=== PATIENT | male | born 1970 | race Caucasian/White ===

== ENCOUNTER 2019-11-22 | Emergency (ER) | payer MEDICARE ==
[~2019-11-22] MED LIST: CLEOCIN300 MG OR; NO MEDS; PERCOCET 5/325M1 TAB OR; PROTONIX40 MG PO
[2019-11-22 18:26] LABS: HEMATOCRIT 38.1 % (39.0-50.0); IMMATURE GRANULOCYTES 1.1 % (0.0-5.0); MEAN CELL VOLUME 87.6 fL CALC (80.0-100.0); MEAN CORPUSCULAR HGB 29.4 pG CALC (26.0-32.0); MEAN CORPUSCULAR HGB CONC 33.6 g/L CALC (32.0-36.0); NEUT# 10.63 thou/uL (1.82-7.42); RED BLOOD COUNT 4.35 mill/uL (4.70-6.10); RED CELL DISTRI WIDTH 13.2 % (11.5-15.5)
[2019-11-22 18:29] LABS: HEMOGLOBIN 12.8 g/dl (14.0-18.0)
[2019-11-22 18:44] LABS: ALBUMIN 3.6 g/dL (3.2-5.0); ALKALINE PHOSPHATASE 89 u/l (38-126); ANION GAP 13 (6-22 (CALC)); BILIRUBIN, TOTAL 0.5 mg/dL (0.0-1.4); BUN 15 mg/dL (9-20); BUN/CREATININE RATIO 18 (12-20 (CALC)); CARBON DIOXIDE 24 mmol/l (22-30); CHLORIDE 99 mmol/l (95-108); CREATININE 0.9 mg/dL (0.7-1.3); GFR > 60 ML/MIN (>=60 (CALC)); GFR FOR AFR.AMER. > 60 ML/MIN (>=60 (CALC)); LIPASE 21 u/l (23-300); SGOT/AST 34 u/l (17-59); SODIUM 133 mmol/l (137-146); TOTAL PROTEIN 7.4 g/dL (6.3-8.2)
[2019-11-22 18:47] LABS: POTASSIUM 3.4 mmol/l (3.5-5.1)
[2019-11-22] MEDS ORDERED: DOXY-CAPS100 MG PO (18:55)
== END 2019-11-22 19:27 | disposition home or self-care (01) ==
PROVIDERS: Family Medicine
DX: J18.9 Pneumonia, unspecified organism (principal); F17.210 Nicotine dependence, cigarettes, uncomplicated; Z88.0 Allergy status to penicillin

== ENCOUNTER 2020-02-18 | Emergency (ER) | payer MEDICARE ==
[~2020-02-18] MED LIST changes: +DOXY-CAPS100 MG PO
== END 2020-02-18 16:08 | disposition home or self-care (01) ==
PROC: 0HQMXZZ Repair Right Foot Skin, External Approach (ICD-10-PCS; principal; 2020-02-18)
DX: S91.011A Laceration without foreign body, right ankle, initial encounter (principal); F17.200 Nicotine dependence, unspecified, uncomplicated; W20.8XXA Other cause of strike by thrown, projected or falling object, initial encounter; Y93.89 Activity, other specified; Y92.009 Unspecified place in unspecified non-institutional (private) residence as the place of occurrence of the external cause

== ENCOUNTER 2020-02-28 | Emergency (ER) | payer MEDICARE | END 2020-02-28 11:59 | disposition home or self-care (01) | DX: S91.011D Laceration without foreign body, right ankle, subsequent encounter (principal); X58.XXXD Exposure to other specified factors, subsequent encounter; F17.210 Nicotine dependence, cigarettes, uncomplicated ==

== ENCOUNTER 2020-09-08 15:55 | Emergency (ER) | payer MEDICARE ==
[~2020-09-08] VITALS: Ht 182.9 cm; Wt 83.6 kg
[2020-09-08] MEDS ORDERED: BACTRIM DS1 TAB PO (16:34)
[2020-09-08] MEDS ORDERED: CEPHALEXIN500 M1 PO (16:34)
[2020-09-08 16:54] VITALS: BP 132/64
== END 2020-09-08 16:54 | disposition home or self-care (01) ==
LOC: ED 15:55
PROC: 0H9FXZZ Drainage of Right Hand Skin, External Approach (ICD-10-PCS; principal; 2020-09-08)
DX: L02.511 Cutaneous abscess of right hand (principal); B95.62 Methicillin resistant Staphylococcus aureus infection as the cause of diseases classified elsewhere; F17.200 Nicotine dependence, unspecified, uncomplicated

== ENCOUNTER 2020-09-10 13:59 | Emergency (ER) | payer MEDICARE ==
[~2020-09-10] VITALS: Ht 182.9 cm; Wt 75.0 kg
[~2020-09-10 13:59] MED LIST changes: +BACTRIM DS1 TAB PO; +CEPHALEXIN500 M1 PO
[2020-09-10 14:47] VITALS: BP 141/89
== END 2020-09-10 14:47 | disposition home or self-care (01) ==
LOC: ED 13:59
DX: Z48.01 Encounter for change or removal of surgical wound dressing (principal); F17.200 Nicotine dependence, unspecified, uncomplicated

== ENCOUNTER 2020-09-12 14:01 | Emergency (ER) | payer MEDICARE ==
[~2020-09-12] VITALS: Ht 182.9 cm; Wt 70.0 kg
[2020-09-12 14:51] VITALS: BP 122/74
== END 2020-09-12 15:05 | disposition home or self-care (01) ==
LOC: ED 14:01
DX: Z48.01 Encounter for change or removal of surgical wound dressing (principal)

== ENCOUNTER 2022-07-24 13:37 | Emergency (ER) | payer MEDICARE ==
[~2022-07-24] VITALS: Ht 182.9 cm; Wt 77.2 kg
[2022-07-24 14:45] VITALS: BP 152/99
[2022-07-24 15:00] VITALS: BP 153/103
[2022-07-24 15:16] VITALS: BP 116/82
[2022-07-24] MEDS ORDERED: VIBRAMYCIN100 M2 PO (15:21)
[2022-07-24 15:31] VITALS: BP 116/82
== END 2022-07-24 15:31 | disposition home or self-care (01) ==
LOC: ED 13:37
DX: L02.415 Cutaneous abscess of right lower limb (principal); F17.210 Nicotine dependence, cigarettes, uncomplicated; Z86.14 Personal history of Methicillin resistant Staphylococcus aureus infection

== ENCOUNTER 2022-10-09 20:47 | Observation (INO) | payer MEDICARE ==
[~2022-10-09] VITALS: Ht 182.9 cm; Wt 80.0 kg
[~2022-10-09 20:47] MED LIST changes: +VIBRAMYCIN100 M2 PO
--- NOTE | 2022-10-09 20:50 | NUR ---
TO ROOM 8 FOR TRIAGE.
[2022-10-09] MEDS ORDERED: DOXYCYCLINE100 MG PO (21:47)
[2022-10-09 22:17] LABS: HEMATOCRIT 38.9 % (39.0-50.0); HEMOGLOBIN 12.7 g/dl (14.0-18.0); IMMATURE GRANULOCYTES 0.1 % (0.0-5.0); MEAN CELL VOLUME 89.8 fL CALC (80.0-100.0); MEAN CORPUSCULAR HGB 29.3 pG CALC (26.0-32.0); MEAN CORPUSCULAR HGB CONC 32.6 g/dL CAL (32.0-36.0); NEUT# 6.33 thou/uL (1.82-7.42); RED BLOOD COUNT 4.33 mill/uL (4.70-6.10); RED CELL DISTRI WIDTH 14.4 % (11.5-15.5)
[2022-10-09 22:35] LABS: ALBUMIN 3.2 g/dL (3.2-5.0); BILIRUBIN, TOTAL 0.1 mg/dL (0.0-1.4); CREATININE 1.8 mg/dL (0.7-1.3); TOTAL PROTEIN 7.2 g/dL (6.3-8.2)
--- NOTE | 2022-10-09 22:40 | NUR ---
DR TO BEDSIDE TO EVALUATE WOUND...DECIDED TO ADMIT. PT LEFT TO DISCUSS WITH ABOUT ADMISSION. STATES WILL RETURN.
--- NOTE | 2022-10-09 23:10 | NUR ---
PT RETURNED TO ROOM.
[2022-10-10] VITALS (12 sets, daily range): BP systolic 115–183; BP diastolic 79–127
--- NOTE | 2022-10-10 02:00 | NUR ---
TO FLOOR VIA W/C WITH LACEY MILLIGAN
--- NOTE | 2022-10-10 02:02 | NUR ---
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 ORIENTATED PT TO ROOM AND CALL [employer] SYSTEM. FLUIDS/SNACK OFFERED. ASMISSION ASSESSMENT COMPLETED. IV PATENT. PT STATES NO PAIN AT THIS TIME. FALL/SAFTEY PRECAUTION IN PLACE, CALL LIGHT WITHIN REACH.
--- NOTE | 2022-10-10 04:01 | NUR ---
PT RESTING IN BED WITH EYES CLOSED. BREATHING EVENA ND UNLABORED. NO DISTRESS NOTED. FALL/SAFTEY PRECAUTION IN PLACE, CALL LIGHT WITHIN REACH.
--- NOTE | 2022-10-10 08:00 | NUR ---
PT IS SLEEPING BUT EASILY AROUSABLE. PT HAS NO C/O PAIN BUT WILL COMPLAIN TO TOUCH OR LLE. PT IS A&OX3 IS ABLE TO FOLLOW COMMANDS, HAS MINIMAL WEAKNESS TO LLE. PT HAS CALL LIGHT NEAR AND WILL MAKE HIS NEEDS KNOWN, WILL CONTINUE TO MONITOR, VSS.
--- NOTE | 2022-10-10 11:28 | NUR ---
S: MAXIMO ZHU is a 52 M who presents with cellulitis. He has a history of steel plates in neck and right knee. All medications in patient's chart were reviewed. O: VS: BP 115/79 mmHg, P 79 bpm, RR 18 bpm,T 98.1 F W 80 kg, HT 72 in, Scr= 1.8,CrCl= 54 ml/min A: Blood culture is pending. Nasal culture for MRSA is pending. P: Vancomycin ordered for pharmacy to dose. Start Vancomycin 1000 mg IV Q12H. Vancomycin trough is drawn before the 4th dose on 10/11/22 @ 11:30. Vancomycin goal trough is between <10-15 mcg/ml>. Pharmacy will follow and or advise on antibiotics use as needed.
--- NOTE | 2022-10-10 12:00 | NUR ---
PT IS SITTING UP IN BED, ON THE PHONE, PT HAS NO CHANGE TO ASSESSMENT, PT HAS CALL LIGHT NEAR.
[2022-10-10 12:54] LABS: ANION GAP 5 (6-22 (CALC)); BUN 15 mg/dL (9-20); BUN/CREATININE RATIO 11 (12-20 (CALC)); CARBON DIOXIDE 28 mmol/l (22-30); CHLORIDE 111 mmol/l (95-108); CREATININE 1.3 mg/dL (0.7-1.3); GFR FOR AFR.AMER. > 60 ML/MIN (>=60 (CALC)); GFR OTHER RACES 58 ML/MIN (>=60 (CALC)); POTASSIUM 4.1 mmol/l (3.5-5.1); SODIUM 140 mmol/l (137-146)
--- NOTE | 2022-10-10 17:00 | NUR ---
PT HAS BEEN TRANSPORTED TO CT, PT AMBULATES WELL, NO ASSISTANCE IS NEEDED IN SHORT DISTANCES. PT STATES HE ONLY HAS PAIN WHEN STANDING. PT HAS BEEN TRANSPORTED BACK TO ROOM, PT HAS CALL LIGHT NEAR AND DINNER TRAY.
--- NOTE | 2022-10-10 19:45 | NUR ---
PT RESTING IN BED WATCHING TV, NO SIGNS OF DISTRESS NOTED, RESP EVEN AND UNLABORED. PT ALERT AND ORIENTED X4. NOTED EDEMA, REDNESS, AND WARM TO TOUCH TO LLE. PT DENIES ANY PAIN AT THIS TIME. CAPILLARY REFILL BRISK AND PEDAL PULSES EQUAL BILAT. ASSESSMENT COMPLETED, CALL LIGHT IN REACH,CONTINUE TO MONITOR.
[2022-10-10 22:17] LABS: URINE BILIRUBIN - DIPSTICK NEGATIVE (NEGATIVE); URINE BLOOD DIPSTICK MODERATE (NEGATIVE); URINE CLARITY CLEAR; URINE COLOR YELLOW; URINE GLUCOSE - DIPSTICK NEGATIVE (NEGATIVE); URINE KETONE NEGATIVE (NEGATIVE); URINE LEUK ESTERASE NEGATIVE (Negative); URINE NITRITE - DIPSTICK NEGATIVE (Negative); URINE PH 6.5 (4.5-8.0); URINE PROTEIN - DIPSTICK 100 mg/dL (NEG-TRACE); URINE SPECIFIC GRAVITY 1.015; URINE UROBILINOGEN - DIPSTICK 0.2 E.U./dL (0.2)
[2022-10-10 22:25] LABS: URINE SQUAMOUS EPITHELIAL CELL FEW EPI/hpf (0-FEW); URINE WBC 0-2 WBC/hpf (0-5)
--- NOTE | 2022-10-11 | NUR ---
IV ANTIBIOTIC HUNG, PT VOICES NO NEEDS OR COMPLAINTS AT THIS TIME. CALL LIGHT IN REACH,CONTINUE TO MONITOR.
[2022-10-11 04:04] VITALS: BP 143/93
--- NOTE | 2022-10-11 04:08 | NUR ---
PT RESTING IN BED, NO SIGNS OF DISTRESS NOTED, RESP EVEN AND UNLABORED. VITALS OBTAINED, PT VOICES NO NEEDS OR COMPLAINTS AT THIS TIME, CALL LIGHT IN REACH, CONTINUE TO MONITOR.
[2022-10-11 05:41] LABS: HEMATOCRIT 37.4 % (39.0-50.0); HEMOGLOBIN 12.2 g/dl (14.0-18.0); MEAN CELL VOLUME 91.7 fL CALC (80.0-100.0); MEAN CORPUSCULAR HGB 29.9 pG CALC (26.0-32.0); MEAN CORPUSCULAR HGB CONC 32.6 g/dL CAL (32.0-36.0); RED BLOOD COUNT 4.08 mill/uL (4.70-6.10); RED CELL DISTRI WIDTH 14.2 % (11.5-15.5)
[2022-10-11 05:51] LABS: BUN 16 mg/dL (9-20); BUN/CREATININE RATIO 11 (12-20 (CALC)); CARBON DIOXIDE 27 mmol/l (22-30); CHLORIDE 110 mmol/l (95-108); CREATININE 1.4 mg/dL (0.7-1.3); GFR FOR AFR.AMER. > 60 ML/MIN (>=60 (CALC)); GFR OTHER RACES 53 ML/MIN (>=60 (CALC)); MAGNESIUM 1.8 mg/dL (1.6-2.3); POTASSIUM 4.5 mmol/l (3.5-5.1)
[2022-10-11 06:03] LABS: ANION GAP 6 (6-22 (CALC)); SODIUM 138 mmol/l (137-146)
--- NOTE | 2022-10-11 07:00 | NUR ---
PT IS AWAKE AND ON HIS PHONE WITH TV ON, PT STATES HE DIDN'T SLEEP MUCH LAST NIGHT. PT IS A&OX3. PT FOLLOWS COMMANDS AND IS ABLE TO MAKE HIS NEEDS KNOWN. PT HAS CALL LIGHT NEAR AND WILL CALL IF IN NEED. PT VS ASSESSED. AND WILL CONTINU TO MONITOR.
[2022-10-11 07:09] VITALS: BP 138/93; BP 141/91
--- NOTE | 2022-10-11 12:00 | NUR ---
PT HAS NO CHANGE TO ASSESSMENT PT HAS BEEN ASSISTED TO SHOWER BY ALL SOURCE INTELLIGENCE ANALYST, PT IS ABLE TO PIVOT TO SHOWER. PT HAS NO C/O PAIN, PT HAS CALL LIGHT NEAR AND WILL CONTINUE TO MONITOR.
[2022-10-11 14:42] VITALS: BP 149/93
--- NOTE | 2022-10-11 14:53 | NUR ---
CONTINUE CURRENT VANCO DOSE OF 1 GRAM Q12H. TROUGH=11 NEXT TROUGH WILL BE 10/13/22 @1130
--- NOTE | 2022-10-11 16:25 | NUR ---
pt is sitting up in bed and has no change to assessment. pt has ivf infusing, pt has no c/o and pt has call light near.
[2022-10-11 18:49] VITALS: BP 151/79
--- NOTE | 2022-10-11 20:50 | NUR ---
PT RESTING IN BED, NO SIGNS OF DISTRESS NOTED, RESP EVEN AND UNLABORED. PT ALERT AND ORIENTED X3, DISCUSSED POC. PT DENIES ANY PAIN OR DISCOMFORT TO LLE, ELEVATED ON PILLOWS. IVF INFUSING, ASSESSMENT COMPLETED, VOICES NO NEEDS OR COMPLAINTS AT THIS TIME. CALL LIGHT IN REACH,CONTINUE TO MONITOR.
--- NOTE | 2022-10-11 22:16 | NUR ---
IV ANTIBIOTIC HUNG, PT DENIES ANY NEEDS OR COMPLAINTS AT THIS TIME. CALL LIGHT IN REACH,CONTINUE TO MONITOR.
--- NOTE | 2022-10-12 | NUR ---
PT RESTING IN BED, IV ANTIBIOTIC INITIATED. PT DENIES ANY NEEDS OR COMPLAINTS AT THIS TIME. CALL LIGHT IN REACH,CONTINUE TO MONITOR.
[2022-10-12 03:39] VITALS: BP 163/88
--- NOTE | 2022-10-12 04:00 | NUR ---
PT RESTING IN BED, NO SIGNS OF DISTRESS NOTED, RESP EVEN AND UNLABORED. CALL LIGHT IN REACH,CONTINUE TO MONITOR.
[2022-10-12 06:54] VITALS: BP 131/79
[2022-10-12] MEDS ORDERED: DOXYCYCLINE100 MG PO (10:56)
--- NOTE | 2022-10-12 11:56 | NUR ---
PT HAS BEEN ASSISTED TO SHOWER, AND AMBULATED BACK TO BED. PT IS NOW SPEAKING WITH DR. PT HAS NO CHANGE TO ASSESSMENT. PT HAS CALL LIGHT NEAR.
== END 2022-10-12 15:00 | disposition home or self-care (01) ==
LOC: ED 20:47 → ED-I 23:40 → ED 10-10 00:06 → MS2 10-10 00:07
PROVIDERS: Emergency Medicine; Surgery; ADMIT Internal Medicine; ATTEND Internal Medicine
DX: L03.116 Cellulitis of left lower limb (principal); F17.200 Nicotine dependence, unspecified, uncomplicated; Z88.0 Allergy status to penicillin
CPT/HCPCS: J1650; J1956; Q9967; S0073

== ENCOUNTER 2023-02-21 19:57 | Emergency (ER) | payer MEDICARE ==
[~2023-02-21] VITALS: Ht 182.9 cm; Wt 82.0 kg
[~2023-02-21 19:57] MED LIST changes: +DOXYCYCLINE100 MG PO
[2023-02-21 20:53] LABS: BASO% 0.3 % (0-3); EOS% 3.1 % (0-8); LYMPH% 27.5 % (15-41); MEAN CELL VOLUME 88.6 fL CALC (80.0-100.0); MEAN CORPUSCULAR HGB 28.5 pG CALC (26.0-32.0); MEAN CORPUSCULAR HGB CONC 32.2 g/dL CAL (32.0-36.0); MONO% 10.8 % (2-13); NEUT# 4.99 thou/uL (1.82-7.42); NEUT% 57.3 % (42-76); RED BLOOD COUNT 5.43 mill/uL (4.70-6.10); RED CELL DISTRI WIDTH 14.7 % (11.5-15.5)
[2023-02-21 20:56] LABS: HEMATOCRIT 48.1 % (39.0-50.0); HEMOGLOBIN 15.5 g/dl (14.0-18.0)
[2023-02-21 20:57] LABS: ALBUMIN 3.1 g/dL (3.2-5.0); ALKALINE PHOSPHATASE 91 u/l (38-126); ANION GAP 10 (6-22 (CALC)); BUN 26 mg/dL (9-20); BUN/CREATININE RATIO 12 (12-20 (CALC)); CARBON DIOXIDE 25 mmol/l (22-30); CHLORIDE 110 mmol/l (95-108); CPK 112 u/l (55-170); CREATININE 2.1 mg/dL (0.7-1.3); ETHYL ALCOHOL 0 mg/dl (0-30); GFR FOR AFR.AMER. 40 ML/MIN (>=60 (CALC)); GFR OTHER RACES 33 ML/MIN (>=60 (CALC)); POTASSIUM 4.7 mmol/l (3.5-5.1); SGOT/AST 37 u/l (17-59); SODIUM 140 mmol/l (137-146); TOTAL PROTEIN 7.2 g/dL (6.3-8.2)
[2023-02-21 21:03] LABS: BILIRUBIN, TOTAL 0.2 mg/dL (0.2-1.3)
[2023-02-21] MEDS ORDERED: TYLENOL # 31 TA1 PO (22:23)
[2023-02-21] MEDS ORDERED: VOLTAREN75 MG PO (22:23)
[2023-02-21] MEDS ORDERED: VIBRAMYCIN100 M2 PO (22:23)
[2023-02-21 23:09] VITALS: BP 110/77
== END 2023-02-21 23:33 | disposition home or self-care (01) ==
LOC: ED 19:57
PROVIDERS: Family Medicine
PROC: 0HQ1XZZ Repair Face Skin, External Approach (ICD-10-PCS; principal; 2023-02-21)
PROC: 0HQLXZZ Repair Left Lower Leg Skin, External Approach (ICD-10-PCS; 2023-02-21)
DX: S02.69XA Fracture of mandible of other specified site, initial encounter for closed fracture (principal); S02.40CA Maxillary fracture, right side, initial encounter for closed fracture; S02.40FA Zygomatic fracture, left side, initial encounter for closed fracture; S02.842A Fracture of lateral orbital wall, left side, initial encounter for closed fracture; S81.012A Laceration without foreign body, left knee, initial encounter; S01.511A Laceration without foreign body of lip, initial encounter; S01.81XA Laceration without foreign body of other part of head, initial encounter; S01.412A Laceration without foreign body of left cheek and temporomandibular area, initial encounter; S16.1XXA Strain of muscle, fascia and tendon at neck level, initial encounter; F17.200 Nicotine dependence, unspecified, uncomplicated; V86.56XA Driver of dirt bike or motor/cross bike injured in nontraffic accident, initial encounter; Y93.I9 Activity, other involving external motion; Y92.821 Forest as the place of occurrence of the external cause

== ENCOUNTER 2023-03-05 11:26 | Emergency (ER) | payer MEDICARE ==
[~2023-03-05] VITALS: Ht 182.9 cm; Wt 81.6 kg
[~2023-03-05 11:26] MED LIST changes: +TYLENOL # 31 TA1 PO; +VOLTAREN75 MG PO
[2023-03-05 11:33] VITALS: BP 134/95
[2023-03-05 11:45] VITALS: BP 133/93
[2023-03-05 11:59] VITALS: BP 113/84
[2023-03-05 12:00] VITALS: BP 113/84
== END 2023-03-05 12:00 | disposition home or self-care (01) ==
LOC: ED 11:26
DX: S81.012D Laceration without foreign body, left knee, subsequent encounter (principal); S01.412D Laceration without foreign body of left cheek and temporomandibular area, subsequent encounter; S02.92XD Unspecified fracture of facial bones, subsequent encounter for fracture with routine healing; F17.200 Nicotine dependence, unspecified, uncomplicated; V86.56XD Driver of dirt bike or motor/cross bike injured in nontraffic accident, subsequent encounter

== ENCOUNTER 2024-05-18 23:36 | Emergency (ER) | payer MEDICARE ==
[~2024-05-18] VITALS: Ht 182.9 cm; Wt 81.3 kg
[2024-05-19] MEDS ORDERED: KETOROLAC TROMETHAMINE 30 MG/ML SDV IM ONE (00:10)
[2024-05-19] MEDS ORDERED: HYDROcodone 5 MG/Acetaminophen 325 MG/COMBO PO ONE (00:10)
[2024-05-19 01:25] VITALS: BP 128/86
[2024-05-19] MEDS ORDERED: RENVELA800 MG PO (02:07)
== END 2024-05-19 01:25 | disposition home or self-care (01) ==
LOC: ED 23:36
DX: K40.90 Unilateral inguinal hernia, without obstruction or gangrene, not specified as recurrent (principal); N18.6 End stage renal disease; F17.200 Nicotine dependence, unspecified, uncomplicated; Z99.2 Dependence on renal dialysis

== ENCOUNTER 2024-08-17 02:11 | Emergency (ER) | payer MEDICARE ==
[~2024-08-17] VITALS: Ht 182.9 cm; Wt 80.0 kg
[~2024-08-17 02:11] MED LIST changes: +RENVELA800 MG PO
[2024-08-17] MEDS ORDERED: HYDROmorphone HCL 2 MG/AMP IV ONE (02:40)
[2024-08-17] MEDS ORDERED: ONDANSETRON HCl 4 MG/2 ML SDV IV ONE (02:40)
[2024-08-17 02:50] LABS: BASO% 0.5 % (0-3); EOS% 4.2 % (0-8); HEMATOCRIT 32.8 % (39.0-50.0); HEMOGLOBIN 10.7 g/dl (14.0-18.0); IMMATURE GRANULOCYTES 0.6 % (0.0-5.0); LYMPH% 8.2 % (15-41); MEAN CORPUSCULAR HGB 30.5 pG CALC (26.0-32.0); MEAN CORPUSCULAR HGB CONC 32.6 g/dL CAL (32.0-36.0); MONO% 9.6 % (2-13); NEUT# 7.82 thou/uL (1.82-7.42); NEUT% 76.9 % (42-76); RED BLOOD COUNT 3.51 mill/uL (4.70-6.10); RED CELL DISTRI WIDTH 15.1 % (11.5-15.5)
[2024-08-17 02:51] LABS: MEAN CELL VOLUME 93.4 fL CALC (80.0-100.0)
[2024-08-17 03:02] LABS: ALBUMIN 3.4 g/dL (3.2-5.0); TOTAL PROTEIN 6.9 g/dL (6.3-8.2)
[2024-08-17 03:17] LABS: BILIRUBIN, TOTAL 0.9 mg/dL (0.2-1.3); CREATININE 8.8 mg/dL (0.7-1.3); POTASSIUM 3.9 mmol/l (3.5-5.1)
[2024-08-17 04:15] VITALS: BP 122/76
[2024-08-17 04:30] VITALS: BP 129/81
[2024-08-17 04:45] VITALS: BP 124/76
[2024-08-17] MEDS ORDERED: SODIUM CHLORIDE 0.9% 1,000 ML IV ONE (04:50)
[2024-08-17] MEDS ORDERED: Levofloxacin 500 mg Premix 100 ML IV ONE (04:50)
[2024-08-17 05:00] VITALS: BP 128/79
[2024-08-17 05:28] VITALS: BP 128/79
== END 2024-08-17 05:28 | disposition short-term general hospital (02) ==
LOC: ED 02:11
PROVIDERS: Emergency Medicine
DX: K65.9 Peritonitis, unspecified (principal); I31.39 Other pericardial effusion (noninflammatory); R74.01 Elevation of levels of liver transaminase levels; R79.89 Other specified abnormal findings of blood chemistry; N18.6 End stage renal disease; Z99.2 Dependence on renal dialysis; F17.200 Nicotine dependence, unspecified, uncomplicated
CPT/HCPCS: J1956

== ENCOUNTER 2024-10-11 05:11 | Emergency (ER) | payer MEDICARE ==
[~2024-10-11] VITALS: Ht 182.9 cm; Wt 78.0 kg
[2024-10-11] VITALS (11 sets, daily range): BP systolic 136–160; BP diastolic 86–103
[~2024-10-11 05:11] MED LIST changes: +FAMOTIDINE20 M1 PO; +LISINOPRIL PO; +OMEPRAZOLE20 MG PO; +RENAGEL800 MG PO
[2024-10-11] MEDS ORDERED: MORPHINE SULFATE 4 MG/ML VIAL IV STA (05:36)
[2024-10-11] MEDS ORDERED: KETOROLAC TROMETHAMINE 30 MG/ML SDV IV ONE (05:40)
[2024-10-11] MEDS ORDERED: DIATRIZOATE MEGLUMINE & SODIUM 30 ML/BTL PO ONE (05:40)
[2024-10-11] MEDS ORDERED: PROMETHAZINE HCL 25 MG/ML AMP IV ONE (05:40)
[2024-10-11 06:07] LABS: BASO% 0.7 % (0-3); EOS% 5.5 % (0-8); HEMATOCRIT 35.9 % (39.0-50.0); HEMOGLOBIN 11.8 g/dl (14.0-18.0); LYMPH% 22.2 % (15-41); MEAN CELL VOLUME 91.1 fL CALC (80.0-100.0); MEAN CORPUSCULAR HGB 29.9 pG CALC (26.0-32.0); MEAN CORPUSCULAR HGB CONC 32.9 g/dL CAL (32.0-36.0); MONO% 12.5 % (2-13); NEUT# 3.21 thou/uL (1.82-7.42); NEUT% 59.1 % (42-76); RED BLOOD COUNT 3.94 mill/uL (4.70-6.10); RED CELL DISTRI WIDTH 17.4 % (11.5-15.5)
[2024-10-11 06:16] LABS: BILIRUBIN, TOTAL 0.9 mg/dL (0.2-1.3); POTASSIUM 4.4 mmol/l (3.5-5.1)
[2024-10-11 06:22] LABS: TOTAL PROTEIN 8.5 g/dL (6.3-8.2)
[2024-10-11 06:23] LABS: CREATININE 7.7 mg/dL (0.7-1.3)
[2024-10-11] MEDS ORDERED: Levofloxacin 500 mg Premix 100 ML IV ONE (09:35)
== END 2024-10-11 10:14 | disposition short-term general hospital (02) ==
LOC: ED 05:11
PROVIDERS: Family Medicine
DX: J18.9 Pneumonia, unspecified organism (principal); I31.39 Other pericardial effusion (noninflammatory); J90 Pleural effusion, not elsewhere classified; N18.6 End stage renal disease; Z99.2 Dependence on renal dialysis; E85.9 Amyloidosis, unspecified; F17.200 Nicotine dependence, unspecified, uncomplicated
CPT/HCPCS: J1956

== ENCOUNTER 2024-11-15 19:07 | Emergency (ER) | payer MEDICARE ==
[~2024-11-15] VITALS: Ht 182.9 cm; Wt 68.0 kg
[2024-11-15 19:59] LABS: BASO% 0.3 % (0-3); EOS% 0.2 % (0-8); HEMATOCRIT 35.5 % (39.0-50.0); HEMOGLOBIN 11.9 g/dl (14.0-18.0); IMMATURE GRANULOCYTES 0.3 % (0.0-5.0); MEAN CELL VOLUME 89.9 fL CALC (80.0-100.0); MEAN CORPUSCULAR HGB 30.1 pG CALC (26.0-32.0); MEAN CORPUSCULAR HGB CONC 33.5 g/dL CAL (32.0-36.0); MONO% 1.2 % (2-13); NEUT# 5.77 thou/uL (1.82-7.42); RED BLOOD COUNT 3.95 mill/uL (4.70-6.10); RED CELL DISTRI WIDTH 16.7 % (11.5-15.5)
[2024-11-15 20:00] VITALS: BP 144/87
[2024-11-15 20:11] LABS: ALBUMIN 4.2 g/dL (3.2-5.0); BILIRUBIN, TOTAL 0.9 mg/dL (0.2-1.3); TOTAL PROTEIN 7.9 g/dL (6.3-8.2)
[2024-11-15 20:18] LABS: CREATININE 11.1 mg/dL (0.7-1.3); MAGNESIUM 2.3 mg/dL (1.6-2.3)
[2024-11-15] MEDS ORDERED: INSULIN REGULAR (HUMAN) 100 UNIT/ML INJ IV ONE (20:30)
[2024-11-15] MEDS ORDERED: DEXTROSE 50% 50 ML/SYR IV ONE (20:30)
[2024-11-15] MEDS ORDERED: SODIUM POLYSTYRENE SULFONATE 15 G/BTL POWDER PO ONE (20:35)
[2024-11-15] MEDS ORDERED: CALCIUM GLUCONATE 1 GM in SODIUM CHLORIDE 0.9% 50 ML IV ONE (20:45)
[2024-11-15] MEDS ORDERED: DEXTROSE 10% 500 ML BAG IV ONE (21:00)
[2024-11-15 21:12] VITALS: BP 147/93
[2024-11-15 22:00] VITALS: BP 151/89
[2024-11-15 22:20] VITALS: BP 151/89
== END 2024-11-15 22:20 | disposition home or self-care (01) ==
LOC: ED 19:07
PROVIDERS: Family Medicine
DX: E85.9 Amyloidosis, unspecified (principal); J91.8 Pleural effusion in other conditions classified elsewhere; E87.5 Hyperkalemia; N18.6 End stage renal disease; Z99.2 Dependence on renal dialysis; Z79.60 Long term (current) use of unspecified immunomodulators and immunosuppressants; Z79.899 Other long term (current) drug therapy; Z87.891 Personal history of nicotine dependence
CPT/HCPCS: J0612

== ENCOUNTER 2024-12-26 13:28 | Emergency (ER) | payer MEDICARE ==
[~2024-12-26] VITALS: Ht 182.9 cm; Wt 69.8 kg
[2024-12-26 13:33] VITALS: BP 103/69
[2024-12-26 13:40] VITALS: BP 112/73
[2024-12-26] MEDS ORDERED: ACYCLOVIR200 MG PO (13:59)
[2024-12-26] MEDS ORDERED: ACYCLOVIR400 MG PO (13:59)
[2024-12-26] MEDS ORDERED: ONDANSETRON ODT8 MG PO (13:59)
[2024-12-26] MEDS ORDERED: LISINOPRIL20 M1 PO (14:00)
[2024-12-26] MEDS ORDERED: COMPAZINE10 MG PO (14:01)
[2024-12-26] MEDS ORDERED: PERCOCET 5/321 COMBO PO (14:01)
[2024-12-26 14:06] VITALS: BP 106/72
[2024-12-26 14:09] LABS: BASO% 0.8 % (0-3); EOS% 11.2 % (0-8); HEMATOCRIT 30.1 % (39.0-50.0); HEMOGLOBIN 10.2 g/dl (14.0-18.0); IMMATURE GRANULOCYTES 0.1 % (0.0-5.0); LYMPH% 10.9 % (15-41); MEAN CORPUSCULAR HGB 33.2 pG CALC (26.0-32.0); MEAN CORPUSCULAR HGB CONC 33.9 g/dL CAL (32.0-36.0); MONO% 8.8 % (2-13); NEUT# 5.13 thou/uL (1.82-7.42); NEUT% 68.2 % (42-76); RED BLOOD COUNT 3.07 mill/uL (4.70-6.10); RED CELL DISTRI WIDTH 22.5 % (11.5-15.5)
[2024-12-26 14:27] LABS: ALBUMIN 3.6 g/dL (3.2-5.0); BILIRUBIN, TOTAL 0.9 mg/dL (0.2-1.3); TOTAL PROTEIN 6.8 g/dL (6.3-8.2)
[2024-12-26 14:29] LABS: INTERNATIONAL NORMALIZED RATIO 1.1 RATIO (0.7-1.3)
[2024-12-26 14:36] LABS: CREATININE 4.8 mg/dL (0.7-1.3); POTASSIUM 3.8 mmol/l (3.5-5.1); PROTHROMBIN TIME 11.7 SECONDS (9.0-12.5)
[2024-12-26 15:22] VITALS: BP 135/86
[2024-12-26 15:49] VITALS: BP 135/86
== END 2024-12-26 15:49 | disposition left against medical advice (07) ==
LOC: ED 13:28
PROVIDERS: Nurse Practitioner
PROC: 0W9B3ZZ Drainage of Left Pleural Cavity, Percutaneous Approach (ICD-10-PCS; principal; 2024-12-26)
DX: J90 Pleural effusion, not elsewhere classified (principal); R79.89 Other specified abnormal findings of blood chemistry; N18.6 End stage renal disease; Z99.2 Dependence on renal dialysis; E85.9 Amyloidosis, unspecified; Z53.29 Procedure and treatment not carried out because of patient's decision for other reasons

== ENCOUNTER 2025-01-13 10:43 | Emergency (ER) | payer MEDICARE ==
[2025-01-13] VITALS (10 sets, daily range): BP systolic 80–98; BP diastolic 51–63
[~2025-01-13] VITALS: Ht 182.9 cm; Wt 74.3 kg
[~2025-01-13 10:43] MED LIST changes: +ACYCLOVIR200 MG PO; +ACYCLOVIR400 MG PO; +COMPAZINE10 MG PO; +LISINOPRIL20 M1 PO; +ONDANSETRON ODT8 MG PO; +PERCOCET 5/321 COMBO PO
[2025-01-13] MEDS ORDERED: SODIUM CHLORIDE 0.9% 1,000 ML IV ONE (10:55)
[2025-01-13 11:11] LABS: BASO% 0.5 % (0-3); EOS% 4.2 % (0-8); HEMATOCRIT 33.3 % (39.0-50.0); HEMOGLOBIN 10.8 g/dl (14.0-18.0); IMMATURE GRANULOCYTES 0.3 % (0.0-5.0); LYMPH% 9.3 % (15-41); MEAN CORPUSCULAR HGB 34.2 pG CALC (26.0-32.0); MEAN CORPUSCULAR HGB CONC 32.4 g/dL CAL (32.0-36.0); MONO% 7.1 % (2-13); NEUT# 5.24 thou/uL (1.82-7.42); NEUT% 78.6 % (42-76); RED BLOOD COUNT 3.16 mill/uL (4.70-6.10); RED CELL DISTRI WIDTH 23.6 % (11.5-15.5)
[2025-01-13 11:13] LABS: MEAN CELL VOLUME 105.4 fL CALC (80.0-100.0)
[2025-01-13 11:26] LABS: ALBUMIN 3.6 g/dL (3.2-5.0); CREATININE 4.3 mg/dL (0.7-1.3); POTASSIUM 3.3 mmol/l (3.5-5.1); TOTAL PROTEIN 6.7 g/dL (6.3-8.2)
[2025-01-13 11:28] LABS: BILIRUBIN, TOTAL 1.3 mg/dL (0.2-1.3)
[2025-01-13] MEDS ORDERED: ASPIRIN 81 MG/TAB PO ONE (11:45)
== END 2025-01-13 12:51 | disposition left against medical advice (07) ==
LOC: ED 10:43
PROVIDERS: Family Medicine
DX: R55 Syncope and collapse (principal); R79.89 Other specified abnormal findings of blood chemistry; N18.6 End stage renal disease; Z99.2 Dependence on renal dialysis; Z53.29 Procedure and treatment not carried out because of patient's decision for other reasons; F17.200 Nicotine dependence, unspecified, uncomplicated; Z20.822 Contact with and (suspected) exposure to COVID-19

== ENCOUNTER 2025-01-16 07:56 | Emergency (ER) | payer MEDICARE ==
[2025-01-16] VITALS (28 sets, daily range): BP systolic 89–120; BP diastolic 56–82
[~2025-01-16] VITALS: Ht 182.9 cm; Wt 70.4 kg
[2025-01-16 08:50] LABS: HEMATOCRIT 32.6 % (39.0-50.0); HEMOGLOBIN 11.4 g/dl (14.0-18.0); IMMATURE GRANULOCYTES 0.3 % (0.0-5.0); MEAN CELL VOLUME 101.6 fL CALC (80.0-100.0); MEAN CORPUSCULAR HGB 35.5 pG CALC (26.0-32.0); PLATELET COUNT 139 thou/uL (130-400); RED BLOOD COUNT 3.21 mill/uL (4.70-6.10); RED CELL DISTRI WIDTH 22.3 % (11.5-15.5)
[2025-01-16 09:04] LABS: ALBUMIN 3.5 g/dL (3.2-5.0); MAGNESIUM 2.2 mg/dL (1.6-2.3); TOTAL PROTEIN 6.4 g/dL (6.3-8.2)
[2025-01-16 09:10] LABS: BILIRUBIN, TOTAL 3.8 mg/dL (0.2-1.3); CREATININE 8.9 mg/dL (0.7-1.3); POTASSIUM 4.2 mmol/l (3.5-5.1)
[2025-01-16 09:12] LABS: MANUAL DIFFERENTIAL YES
[2025-01-16 09:24] LABS: ANISOCYTOSIS FEW; NUCLEATED RED BLOOD CELL 39 /100WBC (0-1)
[2025-01-16 09:25] LABS: PLATELET ESTIMATE NORMAL; TARGET CELLS MODERATE
[2025-01-16] MEDS ORDERED: ENOXAPARIN SODIUM 100 MG/ML SYR SC ONE (13:45)
[2025-01-16] MEDS ORDERED: ASPIRIN 81 MG/TAB PO ONE (13:45)
== END 2025-01-16 14:50 ==
LOC: ED 07:56
PROVIDERS: Family Medicine
PROC: 0W9B3ZZ Drainage of Left Pleural Cavity, Percutaneous Approach (ICD-10-PCS; principal; 2025-01-16)
DX: I21.4 Non-ST elevation (NSTEMI) myocardial infarction (principal); J90 Pleural effusion, not elsewhere classified; E80.6 Other disorders of bilirubin metabolism; R74.01 Elevation of levels of liver transaminase levels; I12.0 Hypertensive chronic kidney disease with stage 5 chronic kidney disease or end stage renal disease; N18.6 End stage renal disease; Z99.2 Dependence on renal dialysis; F17.200 Nicotine dependence, unspecified, uncomplicated; Z91.158 Patient's noncompliance with renal dialysis for other reason; Z20.822 Contact with and (suspected) exposure to COVID-19
CPT/HCPCS: J1650